=== PATIENT | female | born 1940 | race Caucasian/White ===

== ENCOUNTER 2016-07-08 07:34 | Outpatient (CLI) | payer MEDICARE, OTHER | END 2016-07-08 07:35 | disposition home or self-care (01) | DX: Z01.89 Encounter for other specified special examinations (principal) ==

== ENCOUNTER 2016-07-09 07:39 | Outpatient (CLI) | payer MEDICARE, OTHER | END 2016-07-09 07:40 | disposition home or self-care (01) | DX: Z01.89 Encounter for other specified special examinations (principal) ==

== ENCOUNTER 2016-09-01 16:25 | Outpatient (CLI) | payer MEDICARE, OTHER | END 2016-09-01 16:26 | disposition home or self-care (01) | DX: I65.23 Occlusion and stenosis of bilateral carotid arteries (principal) ==

== ENCOUNTER 2017-08-05 08:34 | Outpatient (CLI) | payer SELFPAY | END 2017-08-05 08:35 | disposition home or self-care (01) | LOC: LAB 08:34 | DX: Z01.89 Encounter for other specified special examinations (principal) | CPT/HCPCS: 36415 ==

== ENCOUNTER 2017-11-22 13:52 | Emergency (ER) | payer MEDICARE, OTHER ==
--- NOTE | 2017-11-22 14:19 | ED Physician Documentation ---
PD HPI ABD PAIN - Stated complaint Stated Complaint: ABD PX/NAUSEA - Chief complaint Chief Complaint: Abd Pain - History obtained from History obtained from: Patient - History of Present Illness Timing - onset: Yesterday Timing - duration: Days (1) Timing - details: Gradual onset Pain level max: 8 Pain level now: 5 Quality: Aching, Pain Location: Epigastric, LLQ Radiation: Other (non-radiating) Improved by: Other (nothing) Worsened by: Other (nothing) Associated symptoms: No: Fever, Nausea, Vomiting, Hematemesis, Diarrhea, Constipation, Melena, Hematochezia, Dysuria Similar symptoms before: Other (states has had similar symptoms for the past 3- 4 years intermittently) Recently seen: Not recently seen Review of Systems Ten Systems: 10 systems reviewed and negative Constitutional: denies: Fever, Chills Ears: denies: Ear pain Nose: denies: Rhinorrhea / runny nose, Congestion Throat: denies: Sore throat Cardiac: denies: Chest pain / pressure Respiratory: denies: Cough GI: denies: Nausea, Vomiting, Diarrhea : denies: Dysuria, Frequency, Hesitancy Skin: denies: Rash Musculoskeletal: denies: Neck pain, Back pain Neurologic: denies: Headache PD PAST MEDICAL HISTORY - Past Medical History Past Medical History: Yes Endocrine/Autoimmune: HyPOthyroidism - Past Surgical History Past Surgical History: No - Present Medications Home Medications: Ambulatory Orders Medication Instructions Recorded Confirmed Hyoscyamine Sulfate [Levsin-Sl] 0.125 mg SL Q6H PRN #10 tab.subl 11/22/17 Progesterone,Micronized 100 mg PO 11/22/17 11/22/17 [Progesterone] Thyroid,Pork [Nature-Throid] 48.75 mg PO 11/22/17 Valacyclovir HCl [Valtrex] 1,000 mg PO 11/22/17 - Allergies Allergies/Adverse Reactions: Allergies Allergy/AdvReac Type Severity Reaction Status Date / Time Sulfa (Sulfonamide Allergy Nausea Verified 11/22/17 14:03 Antibiotics) - Living Situation Living Situation: reports: With family Living Arrangement: reports: At home - Social History Does the pt smoke?: No Does the pt drink ETOH?: No Does the pt have substance abuse?: No - Family History Family history: reports: Non contributory PD ED PE NORMAL - Vitals Vital signs reviewed: Yes - General General: Alert and oriented X 3 - HEENT HEENT: Moist mucous membranes, Pharynx benign - Neck Neck: Supple, no meningeal sign - Cardiac Cardiac: RRR - Respiratory Respiratory: No respiratory distress, Clear bilaterally - Abdomen Abdomen: Soft, Non distended, Other (mild TTP LLQ and LUQ. o/w normal exam. no peritoneal signs) - Derm Derm: Warm and dry - Extremities Extremities: No edema - Neuro Neuro: Alert and oriented X 3 - Psych Psych: Normal mood, Normal affect Results - Vitals Vitals: Vital Signs - 24 hr 11/22/17 11/22/17 14:00 19:09 Temperature 36.7 C Heart Rate 68 74 Respiratory 16 16 Rate Blood Pressure 144/70 H 147/73 H O2 Saturation 98 99 Oxygen O2 Source Room air - Labs Labs: Laboratory Tests 11/22/17 11/22/17 11/22/17 13:29 14:25 14:35 WBC 10.9 H RBC 4.33 Hgb 14.1 Hct 42.1 MCV 97.2 MCH 32.4 H MCHC 33.4 RDW 13.3 Plt Count 168 MPV 11.2 H Neut # (Auto) 8.6 H Lymph # (Auto) 1.5 Emery # (Auto) 0.7 Eos # (Auto) 0.0 Baso # (Auto) 0.1 Absolute Nucleated RBC 0.00 Nucleated RBC % 0.0 Sodium 133 L Potassium 4.0 Chloride 99 L Carbon Dioxide 26 Anion Gap 8.0 BUN 17 Creatinine 0.8 Estimated GFR (MDRD) 70 L Glucose 122 H Calcium 9.4 Total Bilirubin 0.6 AST 24 ALT 24 Alkaline Phosphatase 42 Total Protein 6.9 Albumin 4.3 Globulin 2.6 Albumin/Globulin Ratio 1.7 Lipase 26 Urine Color YELLOW Urine Clarity CLEAR Urine pH 6.0 Ur Specific Bylas 1.020 Urine Protein NEGATIVE Urine Glucose (UA) NEGATIVE Urine Ketones NEGATIVE Urine Occult Blood NEGATIVE Urine Nitrite NEGATIVE Urine Bilirubin NEGATIVE Urine Urobilinogen 0.2 (NORMAL) Ur Leukocyte Esterase NEGATIVE Ur Microscopic Review NOT INDICATED Urine Culture Comments NOT INDICATED - Rads (name of study) abd/pelvis CT Radiology: Prelim report reviewed, EMP read contemporaneously, See rad report ( 10 cm length mildly abnormal mid ileum, lower abdomen. This is in relatively close proximity to the left adnexal finding, and could be reactive in nature. Full differential would also include enteritis or ischemia. 4.5 x 3.7 cm hyperenhancing left lower pelvic lesion. Indeterminant whether this could represent a left ovarian mass, left ovarian torsion or a torsion of a pedunculated fibroid. Recommend pelvic ultrasound. Colonic diverticulosis. ) pelvic US Radiology: Prelim report reviewed, EMP read contemporaneously, See rad report ( Left ovary not convincingly seen. If symptoms persist, MRI pelvis could evaluate 2. Irregular endometrial stripe. Correlate with postmenopausal vaginal bleeding and if present consider sampling ) PD MEDICAL DECISION MAKING - ED course Complexity details: reviewed results, re-evaluated patient, considered differential, d/w patient ED course: Patient is a 77-year-old female with abdominal pain of unclear etiology. CT scan showed possible ovarian mass versus cyst versus torsion versus torsed fibroid. Ultrasound does not convincingly show the left ovary, however her symptoms resolved in the emergency department. She also appeared to have a small length of inflammation in her small intestine, possible ileus? She is tolerating p.o. without difficulty. Very well-appearing, nontoxic. Abdomen is soft, nontender nondistended on serial examination. Will have her follow-up with her doctor for further evaluation and care. Patient counseled regarding signs and symptoms for which I believe and urgent re-evaluation would be necessary. Patient with good understanding of and agreement to plan and is comfortable going home at this time This document was made in part using voice recognition software. While efforts are made to proofread this document, sound alike and grammatical errors may occur. - Sepsis Event Vital Signs: Vital Signs - 24 hr 11/22/17 11/22/17 14:00 19:09 Temperature 36.7 C Heart Rate 68 74 Respiratory 16 16 Rate Blood Pressure 144/70 H 147/73 H O2 Saturation 98 99 Oxygen O2 Source Room air Departure - Departure Disposition: 01 Home, Self Care Clinical Impression: Abdominal pain Qualifiers: Abdominal location: unspecified location Qualified Code(s): R10.9 - Unspecified abdominal pain Condition: Good Instructions: ED Abdominal Pain Unkn Cause Follow-Up: Nolan Rush ARNP [Primary Care Provider] - Within 1 week Prescriptions: Hyoscyamine Sulfate [Levsin-Sl] 0.125 mg SL Q6H PRN #10 tab.subl PRN Reason: Abdominal Pain Comments: Return if you worsen. The cause of your symptoms is unclear today, but may be related to your intestines not working correctly (ileus) Discharge Date/Time: 11/22/17 20:23
[2017-11-22] MEDS ORDERED: IOPAMIDOL-300 100 ML VIAL ONE (14:35)
[2017-11-22 14:43] LABS: BASOPHILS # (AUTO) 0.1 10^3/uL (0.0-0.1); BASOPHILS % (AUTO) 0.8 %; EOSINOPHILS % (AUTO) 0.3 %; HGB - HEMOGLOBIN 14.1 g/dL (12.0-16.0); LYMPHOCYTES # (AUTO) 1.5 10^3/uL (1.5-3.5); LYMPHOCYTES % (AUTO) 13.5 %; MEAN CORPUSCULAR HEMOGLOBIN 32.4 pg (27.0-31.0); MEAN CORPUSCULAR HGB CONC 33.4 g/dL (32.0-36.0); MEAN CORPUSCULAR VOLUME 97.2 fL (81.0-99.0); MEAN PLATELET VOLUME 11.2 fL (7.9-10.8); MONOCYTES # (AUTO) 0.7 10^3/uL (0.0-1.0); MONOCYTES % (AUTO) 6.7 %; NEUTROPHILS # (AUTO) 8.6 10^3/uL (1.5-6.6); NEUTROPHILS % (AUTO) 78.7 %; PLT - PLATELET COUNT 168 10^3/uL (130-450); RED BLOOD COUNT 4.33 10^6/uL (4.20-5.40); RED CELL DISTRIBUTION WIDTH 13.3 % (12.0-15.0); WHITE BLOOD COUNT 10.9 x10^3/uL (4.8-10.8)
[2017-11-22 14:48] LABS: BILIRUBIN,URINE NEGATIVE (NEGATIVE); GLUCOSE, URINE (UA) NEGATIVE (NEGATIVE); KETONES,URINE (UA) NEGATIVE (NEGATIVE); LEUKOCYTE ESTERASE, URINE NEGATIVE (NEGATIVE); NITRITE,URINE NEGATIVE (NEGATIVE); OCCULT BLOOD,URINE NEGATIVE (NEGATIVE); PROTEIN,URINE NEGATIVE (NEGATIVE); UROBILINOGEN,URINE 0.2 (NORMAL) E.U./dL (NORMAL)
[2017-11-22 14:51] LABS: CLARITY,URINE CLEAR (CLEAR)
[2017-11-22 15:01] LABS: ALBUMIN 4.3 g/dL (3.2-5.5); ALBUMIN/GLOBULIN RATIO 1.7 (1.0-2.2); BILIRUBIN,TOTAL 0.6 mg/dL (0.2-1.0); CALCIUM 9.4 mg/dL (8.5-10.3); CREATININE 0.8 mg/dL (0.4-1.0); TOTAL PROTEIN 6.9 g/dL (6.7-8.2)
[2017-11-22] MEDS ORDERED: IOPAMIDOL-300 100 ML VIAL IVP ONE (15:51)
--- NOTE | 2017-11-22 16:19 | CT Report ---
Procedure Date: 11/22/2017 Accession Number: [id number] / [id number] Procedure: CT - Abdomen/Pelvis W/ CPT Code: FULL RESULT: EXAM: CT ABDOMEN AND PELVIS EXAM DATE: 11/22/2017 03:43 PM. CLINICAL HISTORY: Chronic intermittent abdominal pain. Patient presents now with left lower quadrant pain, nausea, vomiting and diarrhea. COMPARISONS: 01/03/2013. TECHNIQUE: Routine helical CT imaging was performed through the abdomen and pelvis. IV contrast: 100 ML ISOVUE 300. Enteric contrast: No. Reconstructions: Coronal and sagittal. In accordance with CT protocol optimization, one or more of the following dose reduction techniques were utilized for this exam: automated exposure control, adjustment of mA and/or KV based on patient size, or use of iterative reconstructive technique. FINDINGS: Lung Bases: Unremarkable. Liver: Normal. No masses. Gallbladder/Bile Ducts: Unremarkable. Spleen: Normal. Pancreas: Normal. Adrenal Glands: Normal. Kidneys: Normal. No masses or hydronephrosis. Peritoneal Cavity/Bowel: Large and small bowel are normal caliber. 10 cm length of mild uniform wall thickening of a loop of lower anterior abdominal small bowel, mid ileum, with a small amount of mesenteric edema axial image 59 coronal image 11. Several diverticula off the colon. Large and small bowel otherwise unremarkable. No free air, free fluid nor adenopathy. The appendix is well visualized and normal. Pelvic Organs: 4.5 x 3.7 cm area of inhomogeneous enhancement left adnexa, abutting the dome of the uterus. Best appreciated axial image 59 coronal image 23. Trace amount of free pelvic fluid. Prior study showed no evidence of fibroids. Normal postmenopausal ovaries not visualized. Vasculature: No aneurysms or other significant abnormality. Bones: No significant abnormality. Other: None. IMPRESSION: 1. 10 cm length mildly abnormal mid ileum, lower abdomen. This is in relatively close proximity to the left adnexal finding, and could be reactive in nature. Full differential would also include enteritis or ischemia. 2. 4.5 x 3.7 cm hyperenhancing left lower pelvic lesion. Indeterminant whether this could represent a left ovarian mass, left ovarian torsion or a torsion of a pedunculated fibroid. Recommend pelvic ultrasound. 3. Colonic diverticulosis. RADIA The above findings were discussed with Uriel Smiley by Dr. Madison Liu at 16:18 hrs on 11/22/17.
[2017-11-22 19:12] VITALS: BP 147/73
--- NOTE | 2017-11-22 19:39 | Ultrasound Report ---
Procedure Date: 11/22/2017 Accession Number: [id number] / [id number] Procedure: US - Pelvic w/Transvag+Doppler Comp CPT Code: FULL RESULT: EXAM: PELVIC ULTRASOUND EXAM DATE: 11/22/2017 07:08 PM. CLINICAL HISTORY: L pelvic pain, poss torsed fibroid on CT?. COMPARISON: CT abdomen and pelvis 11/22/2017. TECHNIQUE: Realtime transabdominal pelvic scan performed to identify the uterus and adnexa and as an overview of other pelvic structures, followed by transvaginal scan to provide greater detail of the uterus and adnexa, with static image documentation. FINDINGS: Uterus: 7.6 x 2.6 x 4.1 cm, volume 42.3 cc. Anteverted position. Normal overall size and echotexture. Masses: None. Endometrium: 3 mm. Irregular Cervix: Nabothian cysts. Right Ovary: 2.2 x 1.4 x 1.5 cm, volume 2.4 cc. Normal echotexture and blood flow. Left Ovary: Not convincingly seen. Structure left lateral to the lower uterine segment measuring 3.0 x 2.2 x 2.3 cm could represent a left ovary versus bowel Free Fluid: None. Other: None. IMPRESSION: 1. Left ovary not convincingly seen. If symptoms persist, MRI pelvis could evaluate 2. Irregular endometrial stripe. Correlate with postmenopausal vaginal bleeding and if present consider sampling RADIA
== END 2017-11-22 20:23 | disposition home or self-care (01) ==
LOC: ED 13:52
DX: R10.32 Left lower quadrant pain (principal); R10.12 Left upper quadrant pain; E03.9 Hypothyroidism, unspecified
CPT/HCPCS: 36415; 74177; 76830; 76856; 80053; 81003; 83690; 85025; 93975; 99283; 99284; Q9967; 81001; 87086

== ENCOUNTER 2017-12-14 08:37 | Outpatient (CLI) | payer MEDICARE, OTHER ==
[2017-12-14] MEDS ORDERED: GADOBUTROL 7.5 MMOL/7.5 ML VIAL ONE (09:18)
[2017-12-14] MEDS ORDERED: GADOBUTROL 7.5 MMOL/7.5 ML VIAL IVP ONE (11:35)
[2017-12-14] MEDS ORDERED: BARIUM SULFATE 148 GM POWDER PO ONE (13:02)
--- NOTE | 2017-12-14 13:02 | XRAY Report ---
Procedure Date: 12/14/2017 Accession Number: [id number] / [id number] Procedure: FL - Small Bowel Follow Through CPT Code: FULL RESULT: EXAM: Small Bowel Follow Through DATE: 12/14/2017 12:42 PM CLINICAL HISTORY: LLQ PAIN/ACUTE ABDOMINAL PAIN COMPARISON: CT abdomen pelvis 11/22/2017 as well as ultrasound 11/22/2017. TECHNIQUE: Approximately 600 mL of barium suspension was administered process. Abdominal radiographs were then obtained in 15 minute intervals until contrast was observed to reach the terminal ileum. Fluoroscopic compression paddle views were then carefully obtained in order to delineate the anatomy identified as frequently painful by the patient. Fluoroscopic exposure time: 33 seconds. Number of fluoroscopic images: 5. FINDINGS: Normal loops of small bowel are identified. The terminal ileum appears within normal limits. The configuration of the duodenum and stomach are conventional. IMPRESSION: Normal small bowel follow-through. Please note that imaging correlation to the previously obtained CT and ultrasound due to the following observation: The endometrial cavity appears abnormal on both the ultrasound and CT previously obtained. Based on these findings, recommend referral to gynecology with consideration for sonohysterogram. RADIA
--- NOTE | 2017-12-14 17:07 | MRI Report ---
Procedure Date: 12/14/2017 Accession Number: [id number] / [id number] Procedure: MRI - Pelvis W/WO CPT Code: FULL RESULT: EXAM: MR PELVIS WITH AND WITHOUT CONTRAST EXAM DATE: 12/14/2017 10:05 AM. CLINICAL HISTORY: Left lower quadrant pain/acute abdominal pain. COMPARISON: Abdomen/pelvis with contrast 11/22/2017. TECHNIQUE: Multiplanar breath-hold T1, T2, and DWI sequences obtained through the pelvis on an MR scanner. Images obtained before and after administration of 6 mL Gadavist intravenous contrast. Patient motion artifact is more pronounced on postcontrast series. FINDINGS: Bowel: The visualized portions of the small bowel, colon, and rectum appear normal. Bladder: The urinary bladder appears normal. Reproductive Organs: 1.4 cm fundal fibroid. 1 cm right uterine fibroid. Normal 4 mm endometrial stripe. Anteverted uterus. Right ovary likely measures 2.1 x 0.8 cm on series 1001 image 18. Normal appearance. Left ovary is not definitively identified. No adnexal abnormality evident. Bony Structures: No suspicious bony lesions. IMPRESSION: 1. Two uterine fibroids, measuring up to 1.4 cm within the fundus. 2. No left adnexal abnormality evident by MRI. Left ovary was not identified. RADIA
== END 2017-12-14 08:38 | disposition home or self-care (01) ==
LOC: DI 08:37
PROVIDERS: ATTEND Nurse Practitioner Family
DX: D25.9 Leiomyoma of uterus, unspecified (principal)
CPT/HCPCS: 72197; 74250; A9585

== ENCOUNTER 2018-12-20 08:46 | Outpatient (CLI) | payer MEDICARE, OTHER ==
--- NOTE | 2018-12-21 13:59 | XRAY Report ---
Reason: PAIN IN RIGHT HIP W/INTERNAL EXTERNAL ROTATION Procedure Date: 12/20/2018 Accession Number: [id number] / [id number] Procedure: XRS - Hip w/Pelvis 2-3V RT CPT Code: FULL RESULT: EXAM: RIGHT HIP RADIOGRAPHY EXAM DATE: 12/20/2018 09:05 AM. CLINICAL HISTORY: Pain in right hip with internal and external rotation. COMPARISON: HIP W/PELVIS 2-3V RT 11/20/2015 10:33 AM. TECHNIQUE: 2 views. FINDINGS: Bones: Normal. No fractures or bone lesion. Joints: There are bilateral degenerative changes of the femoroacetabular joints with marginal osteophytosis right greater than left. Overall joint space loss is mild. No subluxation. Soft Tissues: Normal. No soft tissue swelling. IMPRESSION: Right greater than left overall mild to moderate degenerative changes. RADIA
--- NOTE | 2018-12-21 14:00 | XRAY Report ---
Reason: PAIN INN R HIP W/INTERNAL EXTERNAL ROTATION X4YR Procedure Date: 12/20/2018 Accession Number: [id number] / [id number] Procedure: XRS - Lumbar Spine 2 View CPT Code: FULL RESULT: EXAM: LUMBOSACRAL SPINE RADIOGRAPHY EXAM DATE: 12/20/2018 09:05 AM. CLINICAL HISTORY: Pain in right hip with internal and external rotation x 4 years. COMPARISONS: HIP W/PELVIS 2-3V RT 12/20/2018 9:08 AM. TECHNIQUE: 3 views. FINDINGS: Alignment: Normal. No spondylolisthesis or scoliosis. Bones: Five [id number] lumbar vertebral bodies are present. No fractures or bone lesions. Disks: Disk space heights are generally preserved with mild marginal osteophytosis at multiple levels. Facets: Mild to moderate facet arthropathy, more pronounced in the lower lumbar spine. Sacroiliac Joints: Unremarkable. Soft Tissues: Normal. The visualized bowel gas pattern is normal. IMPRESSION: Mild degenerative changes. RADIA
== END 2018-12-20 08:47 | disposition home or self-care (01) ==
LOC: DI.S 08:46
PROVIDERS: ATTEND Family Medicine
DX: M16.0 Bilateral primary osteoarthritis of hip (principal); M47.816 Spondylosis without myelopathy or radiculopathy, lumbar region
CPT/HCPCS: 72100

== ENCOUNTER 2019-07-06 07:50 | Outpatient (CLI) | payer MEDICARE, OTHER | END 2019-07-06 07:51 | disposition home or self-care (01) | LOC: LAB 07:50 | DX: Z01.89 Encounter for other specified special examinations (principal) | CPT/HCPCS: 36415 ==

== ENCOUNTER 2020-09-04 12:46 | Outpatient (CLI) | payer MEDICARE, OTHER ==
--- NOTE | 2020-09-04 16:44 | DEXA Report ---
PROCEDURE: Dexa Spine and/or Hip INDICATIONS: POSTMENOPAUSAL TECHNIQUE: Dual energy x-ray absorptiometry (DXA) was performed on a Primeloop System. Regions measur ed are the AP Spine, femoral neck, and if needed forearm. COMPARISON: None. FINDINGS: Lumbar Spine: Bone Mineral Density 1.019 g/cm/cm,T score -1.3, osteopenia Left Hip: Bone Mineral Density 0.796 g/cm/cm,T score -1.7, osteopenia Left Femoral Neck: Bone Mineral Density 0.743 g/cm/cm, T score -2.1, osteopenia (T score greater or equal to -1.0: NORMAL) (T score from -1.1 to -2.4: OSTEOPENIA) (T score less than or equal to -2.5 to: OSTEOPOROSIS) Impression: Osteopenia noted at the lumbosacral spine and left hip overall and the left femoral neck. Patients with diagnosis of osteoporosis or osteopenia should have regular bone mineral density assess ment. For those eligible for Medicare, routine testing is allowed once every 2 years. Testing frequ ency can be increased for patients who have rapidly progressing disease or for those who are receivin g medical therapy to restore bone mass. Reviewed by: Nirav Ledezma MD on 09/04/2020 4:43 PM PDT Approved by: Nirav Ledezma MD on 09/04/2020 4:43 PM PDT Station ID: [id number]
== END 2020-09-04 12:47 | disposition home or self-care (01) ==
LOC: DI 12:46
PROVIDERS: ATTEND Family Medicine
DX: M85.89 Other specified disorders of bone density and structure, multiple sites (principal)

== ENCOUNTER 2020-09-04 12:51 | Outpatient (CLI) | payer MEDICARE, OTHER ==
--- NOTE | 2020-09-05 15:19 | Mammography Report ---
BILATERAL DIGITAL SCREENING MAMMOGRAM 3D/2D: 09/04/2020 CLINICAL: Baseline exam. Routine screening. No prior exams were available for comparison. The tissue of both breasts is heterogeneously dense. T his may lower the sensitivity of mammography. No significant masses, calcifications, or other findings are seen in either breast. IMPRESSION: NEGATIVE There is no mammographic evidence of malignancy. A 1 year screening mammogram is recommended. This exam was interpreted at Station ID: [id number]. NOTE: For mammograms, a report in lay terms will be sent to the patient. Approximately 15% of breast malignancies will not be visualized mammographically. In the management of a palpable breast mass, a negative mammogram must not discourage biopsy of a clinically suspicious lesion. Electronically Signed By: Lenoora ortiz/oswaldo:09/04/2020 16:23:49 ACR BI-RADS Category 1: Negative 3341F PARENCHYMAL PATTERN: (D) - The breast(s) demonstrate(s) heterogeneously dense fibroglandular fritz castro. BI-RADS CATEGORY: (1) - 1 RECOMMENDATION: (ANNUAL) - Recommend routine annual screening mammography. [id number] 1 year screening LATERALITY: (B)
== END 2020-09-04 12:52 | disposition home or self-care (01) ==
LOC: DI 12:51
PROVIDERS: ATTEND Family Medicine
DX: Z12.31 Encounter for screening mammogram for malignant neoplasm of breast (principal)

== ENCOUNTER 2021-08-19 22:22 | Outpatient (CLI) | payer MEDICARE, OTHER | END 2021-08-19 22:23 | disposition critical access hospital (66) | LOC: EMS 22:22 | DX: R55 Syncope and collapse (principal); R41.0 Disorientation, unspecified; R53.1 Weakness; S00.83XA Contusion of other part of head, initial encounter; R20.2 Paresthesia of skin; X58.XXXA Exposure to other specified factors, initial encounter | CPT/HCPCS: A0425; A0429 ==

== ENCOUNTER 2021-08-29 09:27 | Outpatient (CLI) | payer MEDICARE, OTHER ==
--- NOTE | 2021-08-29 10:22 | XRAY Report ---
PROCEDURE: Chest 2 View X-Ray INDICATIONS: CHEST PAIN W/INHALATION TECHNIQUE: 2 view(s) of the chest. COMPARISON: None. FINDINGS: Surgical changes and devices: None. Lungs and pleura: No pleural effusions or pneumothorax. Lungs are clear. Mediastinum: Mediastinal contours are normal. Heart size is normal. Bones and chest wall: No suspicious bony abnormalities. Soft tissues appear unremarkable. IMPRESSION: No acute cardiopulmonary process demonstrated radiographically. Reviewed by: Nazario Yates MD on 08/29/2021 10:21 AM PDT Approved by: Nazario Yates MD on 08/29/2021 10:21 AM PDT Station ID: [id number]
--- NOTE | 2021-08-29 11:53 | XRAY Report ---
PROCEDURE: Ribs 3 View BILAT INDICATIONS: CHEST PAIN W/INHALATION TECHNIQUE: 2 views of the bilateral ribs were acquired. COMPARISON: 08/29/2021 at 0952 hours. FINDINGS: Surgical changes and devices: None. Bones and chest wall: No displaced rib fracture. Chronic right clavicle fracture which is healed with deformity. No suspicious bony lesions. Overlying soft tissues appear unremarkable. Lungs and pleura: Atelectasis noted in the lungs bilaterally.. No pleural effusions or pneumothorax a re visible. IMPRESSION: No displaced rib fracture. Reviewed by: Pia Hare MD, PhD on 08/29/2021 11:51 AM PDT Approved by: Pia Hare MD, PhD on 08/29/2021 11:51 AM PDT Station ID: [id number]
== END 2021-08-29 09:28 | disposition home or self-care (01) ==
LOC: DI.S 09:27
PROVIDERS: ATTEND Family Medicine
DX: R07.81 Pleurodynia (principal); R55 Syncope and collapse

== ENCOUNTER 2022-09-28 13:31 | Outpatient (CLI) | payer MEDICARE ==
[2022-09-28] MEDS ORDERED: iohexoL-300 100 ML VIAL ONE (13:42)
--- NOTE | 2022-09-28 15:28 | CT Report ---
PROCEDURE: ABDOMEN/PELVIS W INDICATIONS: LEFT LOWER QUAD ABD PAIN CONTRAST: 100ml Omnipaque 300 TECHNIQUE: After the administration of IV and oral contrast, 5 mm thick sections acquired from the diaphragms to the symphysis. 5 mm thick coronal and sagittal reformats were acquired. For radiation dose reducti on, the following was used: automated exposure control, adjustment of mA and/or kV according to pat ent size. COMPARISON: CT abdomen pelvis 7-18 FINDINGS: Image quality: Excellent. Lung bases and heart: Unremarkable. Liver: No solid mass. Gallbladder and biliary tree: Unremarkable. Spleen: No splenomegaly. Pancreas: No pancreatic ductal dilation. Adrenals: No adrenal nodule. Kidneys and ureters: No hydronephrosis. No renal cystic lesion which requires follow up. No solid mas s. Bowel and peritoneum: No bowel distension. No pathologic free fluid. Lymph nodes: No central or retroperitoneal adenopathy. Vessels: No infrarenal aortic aneurysm. PELVIS Reproductive organs: Unremarkable. Bladder: No abnormal wall thickening, accounting for underdistension. Pelvic lymph nodes: No pelvic adenopathy by size criteria. Bones: No aggressive osseous abnormality. Other: No significant ventral or inguinal hernia. IMPRESSION: No visualized acute intra-abdominal or pelvic process. Reviewed by: Janett Linder MD on 09/28/2022 3:27 PM PDT Approved by: Janett Linder MD on 09/28/2022 3:27 PM PDT Station ID: [id number]
[2022-09-28] MEDS ORDERED: iohexoL-300 100 ML VIAL IVP ONE (15:53)
[2022-09-28] MEDS ORDERED: DIATRIZOATE MEGLU/DIATRIZO SOD 30 ML BOTTLE PO ONE (15:53)
== END 2022-09-28 13:32 | disposition home or self-care (01) ==
LOC: DI 13:31
PROVIDERS: ATTEND Family Medicine
DX: R10.814 Left lower quadrant abdominal tenderness (principal); R10.812 Left upper quadrant abdominal tenderness; R19.7 Diarrhea, unspecified
CPT/HCPCS: 74177; Q9963; Q9967

== ENCOUNTER 2022-10-12 08:00 | Outpatient (CLI) | payer MEDICARE | END 2022-10-12 23:59 | disposition home or self-care (01) | LOC: LAB 08:00 | PROVIDERS: ATTEND Internal Medicine | DX: G96.00 Cerebrospinal fluid leak, unspecified (principal); J34.89 Other specified disorders of nose and nasal sinuses | CPT/HCPCS: 81599; 86335 ==

== ENCOUNTER 2022-10-29 08:00 | Outpatient (CLI) | payer MEDICARE | END 2022-10-29 23:59 | disposition home or self-care (01) | LOC: LAB.F 08:00 | PROVIDERS: ATTEND Internal Medicine | DX: G96.00 Cerebrospinal fluid leak, unspecified (principal) | CPT/HCPCS: 81599; 86335 ==

== ENCOUNTER 2023-05-14 08:00 | Outpatient (CLI) | payer MEDICARE ==
--- NOTE | 2023-05-14 11:02 | XRAY Report ---
PROCEDURE: Hip w/Pelvis 2-3V RT INDICATIONS: RIGHT HIP PAIN TECHNIQUE: AP pelvis with lateral view(s) of the right hip(s). COMPARISON: X-ray 12/20/2018. FINDINGS: Bones: No fractures or dislocations. Moderate degenerative changes of the right hip and mild of the left hip with joint space narrowing and marginal spurring. Degenerative changes of the visualized low er lumbar spine and pubic symphysis. No suspicious bony lesions. Soft tissues: No suspicious soft tissue calcifications or masses. IMPRESSION: No acute bony abnormality. Moderate right and mild left hip joint degeneration. Mildly progressed com pared to 2019 Reviewed by: Rubens Hendricks MD on 05/14/2023 11:00 AM PST Approved by: Rubens Hendricks MD on 05/14/2023 11:00 AM PST Station ID: [id number]
--- NOTE | 2023-05-14 11:03 | XRAY Report ---
PROCEDURE: Lumbar Spine 2 View INDICATIONS: RIGHT SCIATICA TECHNIQUE: 2 views of the lumbar spine were acquired. COMPARISON: X-ray 12/20/2018. FINDINGS: Bones: 5 [id number] vertebrae are present. Mild levocurvature of the lumbar spine. Straightenin g of normal lumbar lordosis. Grade 1 anterolisthesis of L2 on L3 and L3 on L4. Mild retrolisthesis of L4 on L5. There are multilevel degenerative changes of the lumbar spine with facet arthropathy and d isc height loss with degenerative endplate changes and marginal spurring. . No vertebral body compre ssion fractures. No suspicious bony lesions. Soft tissues: Overlying bowel gas pattern is normal. No suspicious soft tissue calcifications. Ath erosclerotic vascular calcifications. IMPRESSION: Multilevel degenerative changes of the lumbar spine as described above. This is progress ed compared to 2019. Reviewed by: Rubens Hendricks MD on 05/14/2023 11:02 AM PST Approved by: Rubens Hendricks MD on 05/14/2023 11:02 AM PST Station ID: [id number]
== END 2023-05-14 23:59 | disposition home or self-care (01) ==
LOC: DI.S 08:00
PROVIDERS: ATTEND Family Medicine
DX: M54.31 Sciatica, right side (principal); M47.816 Spondylosis without myelopathy or radiculopathy, lumbar region; M16.0 Bilateral primary osteoarthritis of hip

== ENCOUNTER 2023-06-30 15:07 | Emergency (ER) | payer MEDICARE ==
--- NOTE | 2023-06-30 15:58 | ED Physician Documentation ---
PD HPI FOCAL NEURO - Stated complaint Stated Complaint: WEAKNESS,RT SIDE FACE NUMB - Chief complaint Chief Complaint: Neuro - History obtained from History obtained from: Patient - Additional information Additional information: She thinks about a week ago she developed bad left-sided headache which is pretty much resolved but progressively since then she developed right-sided weakness with numbness of the face, arm, and leg on the right. 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 : None HEENT: None Psych: None Musculoskeletal: None Derm: None - Past Surgical History Past Surgical History: No - Present Medications Home Medications: Ambulatory Orders Medication Instructions Recorded Confirmed Aspirin [Aspirin EC] 81 mg PO DAILY #90 tab 06/30/23 Atorvastatin Calcium 40 mg PO DAILY #90 tablet 06/30/23 Clopidogrel Bisulfate [Plavix] 75 mg PO DAILY #21 tab 06/30/23 Liothyronine [Cytomel] 2.5 mcg PO QDAC 06/30/23 06/30/23 - Allergies Allergies/Adverse Reactions: Allergies Allergy/AdvReac Type Severity Reaction Status Date / Time Sulfa (Sulfonamide Allergy Nausea Verified 06/30/23 15:43 Antibiotics) - Social History Does the pt smoke?: No Smoking Status: Never smoker Does the pt drink ETOH?: No Does the pt have substance abuse?: No - Immunizations Immunizations are current?: Yes Immunizations: TDAP >10years/unknown - POLST Patient has POLST: No PD ED PE NORMAL - Vitals Vital signs reviewed: Yes - General General: Alert and oriented X 3, No acute distress - HEENT HEENT: PERRL, EOMI - Neck Neck: Supple, no meningeal sign, No bony TTP - Cardiac Cardiac: RRR, No murmur - Respiratory Respiratory: No respiratory distress, Clear bilaterally - Abdomen Abdomen: Non tender - Neuro Neuro: Alert and oriented X 3, Normal speech Eye Opening: Spontaneous Motor: Obeys Commands Verbal: Oriented GCS Score: 15 NIHSS - Time Time: 15:52 - Level of Consciousness Level of consciousness: (0) Alert, Keenly responsive LOC Questions: (0) Answers both Q's correct LOC Commands: (0) Performs both correctly - Gaze Best Gaze: (0) Normal - Visual Visual: (0) No loss - Facial Palsy Facial Palsy: (0) Normal, symmetrical movement - Motor Arms (both separate) Motor Arm (right): (0) No drift Motor Arm (left): (0) No drift - Motor Legs (both separate) Motor Leg (right): (2) Some effort against gravity Motor Leg (left): (0) No drift - Limb Ataxia Limb Ataxia: (1) Present in 1 limb (Mild in the right upper extremity) - Sensory Sensory: (1) Oupr-ad-lywuqdfc loss (Right arm, face, and leg) - Best Language Best Language: (0) No aphasia - Dysarthria Dysarthria: (0) Normal - Extinction and Inattention (formally neg Extinction and inattention: (0) No abnormality - Total Score/Results Total Score/Result: 4 Results - Vitals Vitals: Vital Signs - 24 hr 06/30/23 06/30/23 15:35 17:30 Temperature 36.7 C Heart Rate 86 80 Respiratory 16 16 Rate Blood Pressure 148/82 H 158/100 H O2 Saturation 100 98 Oxygen O2 Source Room air - EKG (time done) 1615 EKG releavant findings:: EKG personally interpreted by author of this note. Relevant findings are: Rate: Rate (enter#) (69) Rhythm: NSR [place]: Normal Intervals: Normal VA QRS: Normal Ischemia: Normal ST segments, Q waves (v1-v2) Computer interpretation: Agree with computer - Labs Labs: Laboratory Tests 06/30/23 06/30/23 06/30/23 16:01 16:01 16:01 WBC 9.2 RBC 4.27 Hgb 13.0 Hct 39.8 MCV 93.2 MCH 30.4 MCHC 32.7 RDW 11.8 L Plt Count 200 MPV 12.8 H Neut # (Auto) 6.1 Lymph # (Auto) 2.1 [place] # (Auto) 0.9 Eos # (Auto) 0.1 Baso # (Auto) 0.1 Absolute Nucleated RBC 0.00 Nucleated RBC % 0.0 PT 11.5 INR 1.1 Sodium 137 Potassium 3.8 Chloride 102 Carbon Dioxide 29 Anion Gap 6.0 BUN 12 Creatinine 0.8 Estimated GFR (MDRD) 69 L Glucose 99 Calcium 9.9 Total Bilirubin 0.5 AST 16 ALT 14 Alkaline Phosphatase 59 Total Protein 7.2 Albumin 4.5 Globulin 2.7 Albumin/Globulin Ratio 1.7 - Rads (name of study) CTH/CTA Head Relevant Findings:: Final report received, EMP independent interpretation of test PD Medical Decision Making - ED course ED course: 82-year-old woman presents with strokelike symptoms going on for almost a week so clearly not a tPA or interventional candidate. Workup in the emergency department showing a normal CT/CTA of the head so presume very small distribution stroke such as brainstem causing her symptoms. No large area of stroke evident. Will start dual antiplatelet therapy and statin pending follow- up. As we are talking about all that she actually noted that a lot of the weakness in her right leg may be due to ongoing right hip pain. 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 Departure - Departure Disposition: 01 Home, Self Care Clinical Impression: Cerebrovascular accident (CVA) Qualifiers: CVA mechanism: unspecified Qualified Code(s): I63.9 - Cerebral infarction, unspecified Condition: Critical Instructions: ED Stroke Completed Follow-Up: Yany Galdamez MD [Provider Admit Priv/Credential] - Within 1 week Prescriptions: Aspirin [Aspirin EC] 81 mg PO DAILY #90 tab Atorvastatin Calcium 40 mg PO DAILY #90 tablet Clopidogrel Bisulfate [Plavix] 75 mg PO DAILY #21 tab Comments: Thankfully there is no evidence of large stroke or any bleeding in the brain. Also the arteries leading to your brain are normal without carotid or other stenosis or blockages. This does not rule out a small stroke and we hope you will have good recovery from this. In the meantime we will going to do what is called dual antiplatelet therapy with 2 antiplatelet drugs (Plavix and aspirin) in the short-term and then you should probably be on aspirin only long-term. For the first 3 weeks you will take both, and then after that just the aspirin. We are also starting an anticholesterol medication noting that these are helpful in the prevention of stroke regardless of whether or not your cholesterol is high. You should follow-up with Yany Galdamez within the week. She may want to do some further blood pressure control after the first week, but for the first week or 2 we are doing "permissive hypertension" that is allowing you blood pressure to be high assuming that initially that is a normal response that your body will mount to a stroke. Yany may also refer you to physical therapy. She may also want to do further heart testing such as an echocardiogram or prolonged cardiac monitoring to rule out atrial fibrillation, but you are not in atrial fibrillation here. Forms: PCP List Discharge Date/Time: 06/30/23 17:48
[2023-06-30 16:12] LABS: BASOPHILS # (AUTO) 0.1 10^3/uL (0.0-0.1); BASOPHILS % (AUTO) 0.7 %; EOSINOPHILS # (AUTO) 0.1 10^3/uL (0.0-0.7); HCT - HEMATOCRIT 39.8 % (37.0-47.0); LYMPHOCYTES # (AUTO) 2.1 10^3/uL (1.5-3.5); LYMPHOCYTES % (AUTO) 22.7 %; MEAN CORPUSCULAR HEMOGLOBIN 30.4 pg (27.0-31.0); MEAN CORPUSCULAR HGB CONC 32.7 g/dL (32.0-36.0); MEAN CORPUSCULAR VOLUME 93.2 fL (81.0-99.0); MEAN PLATELET VOLUME 12.8 fL (7.9-10.8); MONOCYTES # (AUTO) 0.9 10^3/uL (0.0-1.0); MONOCYTES % (AUTO) 9.3 %; NEUTROPHILS # (AUTO) 6.1 10^3/uL (1.5-6.6); NEUTROPHILS % (AUTO) 66.1 %; PLT - PLATELET COUNT 200 10^3/uL (130-450); RED BLOOD COUNT 4.27 10^6/uL (4.20-5.40); RED CELL DISTRIBUTION WIDTH 11.8 % (12.0-15.0); WHITE BLOOD COUNT 9.2 x10^3/uL (4.8-10.8)
[2023-06-30 16:19] LABS: INR 1.1 (0.8-1.2); PT - PROTHROMBIN TIME 11.5 secs (9.9-12.6)
[2023-06-30 16:27] LABS: ALBUMIN 4.5 g/dL (3.2-5.5); ALBUMIN/GLOBULIN RATIO 1.7 (1.0-2.2); BILIRUBIN,TOTAL 0.5 mg/dL (0.2-1.0); CALCIUM 9.9 mg/dL (8.5-10.3); CREATININE 0.8 mg/dL (0.6-1.3); POTASSIUM 3.8 mmol/L (3.5-4.5); TOTAL PROTEIN 7.2 g/dL (6.4-8.9)
[2023-06-30] MEDS ORDERED: iohexoL-300 100 ML VIAL ONE (16:31)
[2023-06-30] MEDS: iohexoL-300 100 ML VIAL IVP ONE (17:00)
--- NOTE | 2023-06-30 17:15 | CT Report ---
PROCEDURE: Head WO INDICATIONS: CVA sx TECHNIQUE: Noncontrast 4.5 mm thick angled axial sections acquired from the foramen magnum to the vertex. For r adiation dose reduction, the following was used: automated exposure control, adjustment of mA and/or kV according to patient size. COMPARISON: CT head dated 08/19/2021. FINDINGS: Image quality: Excellent. CSF spaces: Basal cisterns are patent. No extra-axial fluid collections. Ventricles are normal in size and shape. Brain: No midline shift. No intracranial masses or hemorrhage. Gallegos-white matter interface is norm al. Intracranial carotid calcifications. Age-related volume loss and mild small vessel ischemic w[place]ell ge. Skull and face: Calvarium and visualized facial bones are intact, without suspicious lesions. Sinuses: Visualized sinuses and mastoids are clear. IMPRESSION: No acute intracranial pathology. Reviewed by: Kory Cheney MD on 06/30/2023 5:13 PM PST Approved by: Kory Cheney MD on 06/30/2023 5:13 PM PST Station ID: [id number]
--- NOTE | 2023-06-30 17:18 | CT Report ---
PROCEDURE: Angio Head/Neck INDICATIONS: CVA sx TECHNIQUE: Pre-contrast 4.5 mm thick sections acquired from the foramen magnum to the vertex. After the adminis tration of intravenous contrast, 1 mm thick sections acquired from the aortic arch through the [place] of [place]. Post-contrast 4.5 mm thick sections then re-acquired from the foramen magnum to the vert ex. 3-dimensional msbiiut-ggdoirukk-fuyauxibkh (MIP) and/or volume rendering reformats were acquired of the central intracranial vasculature and neck separately. For radiation dose reduction, the foll owing was used: automated exposure control, adjustment of mA and/or kV according to patient size. CONTRAST: See chart COMPARISON: CT head from the same date FINDINGS: Image quality: Excellent. BRAIN: CSF spaces: Ventricles are normal in size and shape. Basal cisterns are patent. No extra-axial flu id collections. Brain: No midline shift. No intracranial bleeds or masses. Gallegos-white matter interface appears int act. Skull and face: Calvarium and facial bones appear intact, without suspicious lesions. Orbits appear normal. Sinuses: Sinuses and mastoids are clear. HEAD CT ANGIOGRAPHY: Anterior circulation: Intracranial internal carotid arteries are normal in size and flow. The flow within the paired anterior cerebral arteries is normal and symmetric. The flow within the middle cer ebral arteries is normal and symmetric. The anterior communicating artery is seen. No aneurysms are seen. Posterior circulation: Visualized portions of the vertebral arteries demonstrate normal caliber, and join to form a normal appearing basilar artery. Flow within the posterior cerebral arteries is norm al and symmetric. No aneurysms are seen. NECK CT ANGIOGRAPHY: Carotid system: The great vessels demonstrate a conventional anatomy as they arise from the aortic a rch. The origins of the common carotid arteries appear patent. The common carotid arteries demonstr ate normal caliber and courses. The bifurcation regions are both widely patent. The internal caroti d arteries demonstrate normal calibers and courses. Posterior circulation: The origins of the vertebral arteries both appear widely patent. The more coburn perior extracranial portions of both vertebral arteries also demonstrate normal courses and calibers. They join to form a normal appearing basilar artery. Soft tissues: Visualized neck soft tissues demonstrate no suspicious abnormalities. Bones: No suspicious bony lesions. Visualized cervical spine appears normally aligned. IMPRESSION: 1. Unremarkable CTA head. No stenosis, aneurysm, occlusion, or focal filling defect. 2. Unremarkable CTA neck. Widely patent carotids. The estimate of stenosis included in the report of the imaging study was calculated using the NASCET method Reviewed by: Kory Cheney MD on 06/30/2023 5:16 PM PST Approved by: Kory Cheney MD on 06/30/2023 5:16 PM PST Station ID: [id number]
[2023-06-30 17:37] VITALS: BP 158/100; O2SAT 98
== END 2023-06-30 17:48 | disposition home or self-care (01) ==
LOC: ED 15:07
DX: I63.9 Cerebral infarction, unspecified (principal)
CPT/HCPCS: 36415; 70450; 70496; 70498; 80053; 85025; 85610; 93005; 99284; Q9967

== ENCOUNTER 2023-09-08 14:45 | Outpatient (CLI) | payer MEDICARE | END 2023-09-08 14:46 | disposition home or self-care (01) | LOC: DI 14:45 | PROVIDERS: ATTEND Internal Medicine | DX: G45.9 Transient cerebral ischemic attack, unspecified (principal) | CPT/HCPCS: 93307 ==

== ENCOUNTER 2023-09-23 09:36 | Outpatient (CLI) | payer MEDICARE ==
[2023-09-23 15:15] LABS: BASOPHILS # (AUTO) 0.1 10^3/uL (0.0-0.1); BASOPHILS % (AUTO) 0.8 %; EOSINOPHILS # (AUTO) 0.2 10^3/uL (0.0-0.7); EOSINOPHILS % (AUTO) 3.3 %; HCT - HEMATOCRIT 41.2 % (37.0-47.0); HGB - HEMOGLOBIN 12.8 g/dL (12.0-16.0); LYMPHOCYTES % (AUTO) 29.9 %; MEAN CORPUSCULAR HEMOGLOBIN 29.4 pg (27.0-31.0); MEAN CORPUSCULAR HGB CONC 31.1 g/dL (32.0-36.0); MEAN CORPUSCULAR VOLUME 94.7 fL (81.0-99.0); MEAN PLATELET VOLUME 14.2 fL (7.9-10.8); MONOCYTES # (AUTO) 0.8 10^3/uL (0.0-1.0); MONOCYTES % (AUTO) 11.8 %; NEUTROPHILS # (AUTO) 3.6 10^3/uL (1.5-6.6); PLT - PLATELET COUNT 207 10^3/uL (130-450); RED BLOOD COUNT 4.35 10^6/uL (4.20-5.40); RED CELL DISTRIBUTION WIDTH 12.1 % (12.0-15.0); WHITE BLOOD COUNT 6.6 x10^3/uL (4.8-10.8)
[2023-09-23 16:00] LABS: ALBUMIN 4.4 g/dL (3.2-5.5); ALBUMIN/GLOBULIN RATIO 1.6 (1.0-2.2); ALKALINE PHOSPHATASE 55 IU/L (42-121); ALT ALANINE AMINOTRANSFERASE 14 IU/L (10-60); AST ASPARTATE AMINOTRANSFERASE 18 IU/L (10-42); BILIRUBIN,TOTAL 0.6 mg/dL (0.2-1.0); BUN - BLOOD UREA NITROGEN 15 mg/dL (6-20); CALCIUM 9.7 mg/dL (8.5-10.3); CARBON DIOXIDE - CO2 29 mmol/L (21-32); CHLORIDE 99 mmol/L (101-111); CHOL/HDL RATIO 2.3 (<4.4); CHOLESTEROL 206 mg/dL; CREATININE 0.9 mg/dL (0.6-1.3); GFR - MDRD 60 (>89); GLUCOSE 77 mg/dL (74-104); HDL CHOLESTEROL 89 mg/dL; LDL CHOLESTEROL,CALCULATED 100 mg/dL; LDL/HDL RATIO 1.1 (<4.4); POTASSIUM 4.1 mmol/L (3.5-4.5); SODIUM 134 mmol/L (135-145); TOTAL PROTEIN 7.1 g/dL (6.4-8.9); TRIGLYCERIDES 86 mg/dL (48-352); VLDL CHOLESTEROL 17 mg/dL
[2023-09-23 16:07] LABS: THYROID STIMULATING HORMONE 3.78 uIU/mL (0.34-5.60)
[2023-09-23 20:34] LABS: ESTIMATED AVERAGE GLUCOSE 120 mg/dL (70-100); HEMOGLOBIN A1c% 5.8 % (4.27-6.07)
== END 2023-09-23 09:37 | disposition home or self-care (01) ==
LOC: LAB.S 09:36
PROVIDERS: ATTEND Internal Medicine
DX: G45.9 Transient cerebral ischemic attack, unspecified (principal); R41.3 Other amnesia; E03.9 Hypothyroidism, unspecified
CPT/HCPCS: 36415; 80053; 80061; 82607; 83036; 83090; 83721; 84439; 84443; 84481; 85025

== ENCOUNTER 2023-10-21 09:59 | Outpatient (CLI) | payer MEDICARE ==
--- NOTE | 2023-10-22 00:45 | MRI Report ---
PROCEDURE: MRI brain without contrast INDICATIONS: Transient neurologic deficit TECHNIQUE: Multiplanar multisequential MR images of the brain were obtained without contrast COMPARISON: None FINDINGS: CSF Spaces: Basal cisterns are patent. No extra-axial fluid collections. Ventricles are normal in size and shape. Brain: No intracranial masses or hemorrhage. Gallegos/white matter interface is normal. Brainstem appe ars normal. Diffusion-weighted images shows no evidence of acute infarct. Normal intravascular flow voids are present. Multifocal punctate foci on the susceptibility weighted sequences. Predominantly in the periphery wit hin the cortex pelvis deep gallegos nuclei and sparing the thalami. Skull and face: Calvarium has normal marrow signal. Orbits appear normal. Bilateral intraocular shelbi s replacements noted. Sinuses: Sinuses and mastoids are clear. 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 Differential would include less likely hypertensive encephalopathy or history of traum a Atrophy and chronic ischemic change without acute infarct, hemorrhage or mass lesion Reviewed by: Dontae Mcdermott MD on 10/21/2023 11:43 PM AKDT Approved by: Dontae Mcdermott MD on 10/21/2023 11:43 PM AKDT Station ID: [id number]
== END 2023-10-21 10:00 | disposition home or self-care (01) ==
LOC: DI 09:59
PROVIDERS: ATTEND Internal Medicine
DX: G45.9 Transient cerebral ischemic attack, unspecified (principal); R29.90 Unspecified symptoms and signs involving the nervous system

== ENCOUNTER 2023-12-03 07:47 | Outpatient (CLI) | payer MEDICARE ==
[2023-12-03 16:20] LABS: CHOL/HDL RATIO 2.1 (<4.4); CHOLESTEROL 188 mg/dL; HDL CHOLESTEROL 89 mg/dL; LDL CHOLESTEROL,CALCULATED 85 mg/dL; TRIGLYCERIDES 72 mg/dL; VLDL CHOLESTEROL 14 mg/dL
== END 2023-12-03 07:48 | disposition home or self-care (01) ==
LOC: LAB.S 07:47
PROVIDERS: ATTEND Internal Medicine
DX: E78.5 Hyperlipidemia, unspecified (principal); E03.9 Hypothyroidism, unspecified
CPT/HCPCS: 36415; 80061; 83721; 84443